=== PATIENT | female | born 1970 | race Caucasian/White ===

== ENCOUNTER 2017-01-07 09:11 | Outpatient (CLI) | payer OTHER | END 2017-01-07 09:12 | disposition home or self-care (01) | DX: M85.89 Other specified disorders of bone density and structure, multiple sites (principal) ==

== ENCOUNTER 2017-05-19 11:05 | Outpatient (CLI) | payer OTHER ==
[2017-05-19 19:14] LABS: ALBUMIN/GLOBULIN RATIO 1.7 (1.0-2.2); BILIRUBIN,TOTAL 0.4 mg/dL (0.2-1.0); BUN - BLOOD UREA NITROGEN 7 mg/dL (6-20); CALCIUM 9.5 mg/dL (8.5-10.3); CARBON DIOXIDE - CO2 27 mmol/L (21-32); CHLORIDE 104 mmol/L (101-111); CREATININE 0.6 mg/dL (0.4-1.0); GFR - MDRD 109 (>89); GLUCOSE 94 mg/dL (70-100); POTASSIUM 3.4 mmol/L (3.5-5.0); SODIUM 139 mmol/L (135-145); TOTAL PROTEIN 7.1 g/dL (6.7-8.2)
[2017-05-19 19:41] LABS: BASOPHILS # (AUTO) 0.1 10^3/uL (0.0-0.1); BASOPHILS % (AUTO) 0.6 %; EOSINOPHILS # (AUTO) 0.1 10^3/uL (0.0-0.7); EOSINOPHILS % (AUTO) 0.9 %; HCT - HEMATOCRIT 41.5 % (37.0-47.0); LYMPHOCYTES # (AUTO) 3.2 10^3/uL (1.5-3.5); LYMPHOCYTES % (AUTO) 28.8 %; MEAN CORPUSCULAR HEMOGLOBIN 33.4 pg (27.0-31.0); MEAN CORPUSCULAR HGB CONC 33.7 g/dL (32.0-36.0); MEAN CORPUSCULAR VOLUME 99.2 fL (81.0-99.0); MEAN PLATELET VOLUME 7.3 fL (7.9-10.8); MONOCYTES # (AUTO) 0.9 10^3/uL (0.0-1.0); MONOCYTES % (AUTO) 8.2 %; NEUTROPHILS # (AUTO) 6.9 10^3/uL (1.5-6.6); NEUTROPHILS % (AUTO) 61.5 %; RED BLOOD COUNT 4.18 10^6/uL (4.20-5.40); UNCORRECTED WHITE BLOOD COUNT 11.3 x10^3/uL; WHITE BLOOD COUNT 11.3 x10^3/uL (4.8-10.8)
== END 2017-05-19 11:06 ==
LOC: LAB.WCP 11:05
PROVIDERS: ATTEND Family Medicine
DX: M25.50 Pain in unspecified joint (principal); M54.2 Cervicalgia; L40.9 Psoriasis, unspecified
CPT/HCPCS: 36415; 80053; 85025; 85651; 86140

== ENCOUNTER 2021-03-03 12:17 | Emergency (ER) | payer OTHER ==
--- NOTE | 2021-03-03 12:49 | ED Physician Documentation ---
PD HPI CHEST PAIN - Stated complaint Stated Complaint: CHEST/LEG PX/HEART PALP - Chief complaint Chief Complaint: Cardiac - History obtained from History obtained from: Patient - History of Present Illness Timing - onset: How many days ago (symptoms of weakness, muscle cramps and palpitations for the past week.), Chronic (patient states potassium chronically low despite daily supplement. No diuretics, chronic diarrhea. Eval by PMD without Dx. Had K tested in office and was lower than usual at 2.6 despite increased oral supplements this past week. Referred to ER. Sx of cramps and palpitations, general weakness.) Timing - onset during: Light activity Timing - details: Gradual onset, Waxing and waning Quality: Tightness (intermittent in chest, with feeling of palpations.). No: Pressure Location: Substernal Radiation: No: Jaw, Neck Improved by: Rest Worsened by: Exertion. No: Inspiration Associated symptoms: General Weakness, Palpitations. No: Shortness of air, Nausea, Vomiting Similar symptoms before: No diagnosis Recently seen: Clinic (seen by PMD with check of K last week was 2.6, with baseline about 3-3.3 Had increase in oral supplements of KCl 20 mEq once daily to TID. Recheck in office today was still 2.6 so referred to ER.) Review of Systems Constitutional: denies: Fever, Chills Nose: denies: Rhinorrhea / runny nose, Congestion Throat: denies: Sore throat Cardiac: reports: Chest pain / pressure (the past week at times), Palpitations. denies: Pedal edema, Calf pain Respiratory: denies: Cough GI: denies: Nausea, Vomiting, Diarrhea : denies: Frequency Neurologic: reports: Generalized weakness. 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 - Present Medications Home Medications: Ambulatory Orders Medication Instructions Recorded Confirmed Hydrocodone/Acetaminophen [Vicodin 1 each PO 05/19/16 5-300 mg Tablet] Ibuprofen [Motrin] 800 mg PO Q8H PRN 07/26/16 07/26/16 Lidocaine [Lidoderm] 1 each TP 05/19/16 Potassium Chloride 10 meq PO DAILY 3 Days tablet.er 05/19/16 hydrOXYzine PAMOATE [Vistaril] 25 mg PO Q6H 05/19/16 05/19/16 Potassium Gluconate 99 mg PO BID #40 tablet 03/03/21 - Allergies Allergies/Adverse Reactions: Allergies Allergy/AdvReac Type Severity Reaction Status Date / Time No Known Drug Allergies Allergy Verified 03/03/21 12:22 - Social History Does the pt smoke?: Yes Smoking Status: Current every day smoker Does the pt drink ETOH?: No Does the pt have substance abuse?: No - Immunizations Immunizations are current?: Yes PD ED PE NORMAL - Vitals Vital signs reviewed: Yes - General General: Alert and oriented X 3, No acute distress, Other. No: Well developed/nourished (seems well developed but is very thin. ) - HEENT HEENT: Pharynx benign, Dentition benign (does not appear c/w chronic vomiting) - Neck Neck: Supple, no meningeal sign, No adenopathy - Cardiac Cardiac: RRR, No murmur - Respiratory Respiratory: Clear bilaterally - Abdomen Abdomen: Normal bowel sounds, Soft, Non tender - Back Back: No CVA TTP - Derm Derm: Normal color, Warm and dry - Extremities Extremities: No edema, No calf tenderness / cord - Neuro Neuro: Alert and oriented X 3, No motor deficit, Normal speech Results - Vitals Vitals: Vital Signs - 24 hr 03/03/21 03/03/21 03/03/21 12:22 14:30 15:23 Temperature 36.6 C Heart Rate 84 67 63 Respiratory 16 18 13 Rate Blood Pressure 114/75 99/55 L 108/66 O2 Saturation 98 95 100 03/03/21 03/03/21 15:41 15:54 Temperature 36.5 C Heart Rate 67 75 Respiratory 12 16 Rate Blood Pressure 107/65 107/78 O2 Saturation 100 99 Oxygen O2 Source Room air - EKG (time done) 12:26 Rate: Rate (enter#) (81) Rhythm: NSR [place]: Normal Intervals: Normal ND Ischemia: Normal ST segments. No: ST elevation c/w ischemia, ST depression, T wave inversion (but does have flattened t waves diffusely) - Labs Labs: Laboratory Tests 03/03/21 03/03/21 03/03/21 12:46 12:46 12:46 WBC 13.2 H RBC 4.24 Hgb 14.4 Hct 41.5 MCV 97.9 MCH 34.0 H MCHC 34.7 RDW 13.8 Plt Count 296 MPV 8.3 Neut # (Auto) 8.1 H Lymph # (Auto) 3.5 [place] # (Auto) 1.3 H Eos # (Auto) 0.2 Baso # (Auto) 0.0 Absolute Nucleated RBC 0.00 Nucleated RBC % 0.0 Sodium 137 Potassium 3.0 L Chloride 101 Carbon Dioxide 26 Anion Gap 10.0 BUN 7 Creatinine 0.5 Estimated GFR (MDRD) 132 Glucose 100 Calcium 9.2 Magnesium Total Bilirubin 0.4 AST 19 ALT 22 Alkaline Phosphatase 61 Troponin I High Sens < 2.3 L Total Protein 7.3 Albumin 4.3 Globulin 3.0 Albumin/Globulin Ratio 1.4 Lipase 28 TSH Urine Color Urine Clarity Urine pH Ur Specific [place] Urine Protein Urine Glucose (UA) Urine Ketones Urine Occult Blood Urine Nitrite Urine Bilirubin Urine Urobilinogen Ur Leukocyte Esterase Urine RBC Urine WBC Ur Squamous Epith Cells Urine Bacteria Ur Microscopic Review Urine Culture Comments Urine Potassium 03/03/21 03/03/21 03/03/21 12:46 12:46 15:19 WBC RBC Hgb Hct MCV MCH MCHC RDW Plt Count MPV Neut # (Auto) Lymph # (Auto) [place] # (Auto) Eos # (Auto) Baso # (Auto) Absolute Nucleated RBC Nucleated RBC % Sodium Potassium Chloride Carbon Dioxide Anion Gap BUN Creatinine Estimated GFR (MDRD) Glucose Calcium Magnesium 2.1 Total Bilirubin AST ALT Alkaline Phosphatase Troponin I High Sens Total Protein Albumin Globulin Albumin/Globulin Ratio Lipase TSH 1.04 Urine Color Urine Clarity Urine pH Ur Specific [place] Urine Protein Urine Glucose (UA) Urine Ketones Urine Occult Blood Urine Nitrite Urine Bilirubin Urine Urobilinogen Ur Leukocyte Esterase Urine RBC Urine WBC Ur Squamous Epith Cells Urine Bacteria Ur Microscopic Review Urine Culture Comments Urine Potassium 5.0 03/03/21 15:19 WBC RBC Hgb Hct MCV MCH MCHC RDW Plt Count MPV Neut # (Auto) Lymph # (Auto) [place] # (Auto) Eos # (Auto) Baso # (Auto) Absolute Nucleated RBC Nucleated RBC % Sodium Potassium Chloride Carbon Dioxide Anion Gap BUN Creatinine Estimated GFR (MDRD) Glucose Calcium Magnesium Total Bilirubin AST ALT Alkaline Phosphatase Troponin I High Sens Total Protein Albumin Globulin Albumin/Globulin Ratio Lipase TSH Urine Color YELLOW Urine Clarity CLEAR Urine pH 6.0 Ur Specific [place] <=1.005 Urine Protein NEGATIVE Urine Glucose (UA) NEGATIVE Urine Ketones NEGATIVE Urine Occult Blood SMALL H Urine Nitrite NEGATIVE Urine Bilirubin NEGATIVE Urine Urobilinogen 0.2 (NORMAL) Ur Leukocyte Esterase NEGATIVE Urine RBC 0-5 Urine WBC 0-3 Ur Squamous Epith Cells FEW Squamous Urine Bacteria Rare Ur Microscopic Review INDICATED Urine Culture Comments NOT INDICATED Urine Potassium PD MEDICAL DECISION MAKING - ED course Complexity details: reviewed results (referred to ER for K 2.6 in office, but is 3.0 here, so oral supplements helping some. Urine K is 5, so not likely potassium wasting in urine. UA otherwise normal, so not likely RTA. ), considered differential (patient with feeling of general weakness, muscle cramps often, and palpitations. History of low K for no good reason, ? malabsoprtion. Consider urinary excretion too, so can get urinary K and UA. ), d/w patient Departure - Departure Disposition: 01 Home, Self Care Clinical Impression: General weakness, Hypokalemia Condition: Stable Record reviewed to determine appropriate education?: Yes Instructions: ED Potassium Deficiency Follow-Up: [place] AUGUST DO [Primary Care Provider] - Prescriptions: Potassium Gluconate 99 mg PO BID #40 tablet Comments: Your potassium level was 3.0 here which was a little bit improved from outpatient. You were given to rider bags of potassium IV. Your urine potassium test is still pending. Have your primary care follow-up with these results. If the potassium supplements are not absorbing well, we can try a different form potassium supplement and see if that does better. I wrote for potassium gluconate to take twice daily for the next several days to a week and then once daily after that. Follow-up with your primary care later this week for recheck of blood tests. Discharge Date/Time: 03/03/21 15:54
--- NOTE | 2021-03-03 12:49 | XRAY Report ---
PROCEDURE: Chest 1 View X-Ray INDICATIONS: Chest pain TECHNIQUE: One view of the chest was acquired. COMPARISON: Chest x-ray 05/19/2016 FINDINGS: Surgical changes and devices: None. Lungs and pleura: No pleural effusions or pneumothorax. Lungs are clear. Lungs are hyperexpanded. Mediastinum: Mediastinal contours appear normal. Heart size is normal. Bones and chest wall: No suspicious bony lesions. Overlying soft tissues appear unremarkable. IMPRESSION: No acute pulmonary process. Reviewed by: Elli Ivory MD on 03/03/2021 12:48 PM PDT Approved by: Elli Ivory MD on 03/03/2021 12:48 PM PDT Station ID: [id number]
[2021-03-03 12:54] LABS: BASOPHILS % (AUTO) 0.3 %; EOSINOPHILS # (AUTO) 0.2 10^3/uL (0.0-0.7); EOSINOPHILS % (AUTO) 1.1 %; HCT - HEMATOCRIT 41.5 % (37.0-47.0); HGB - HEMOGLOBIN 14.4 g/dL (12.0-16.0); LYMPHOCYTES # (AUTO) 3.5 10^3/uL (1.5-3.5); LYMPHOCYTES % (AUTO) 26.7 %; MEAN CORPUSCULAR HGB CONC 34.7 g/dL (32.0-36.0); MEAN CORPUSCULAR VOLUME 97.9 fL (81.0-99.0); MEAN PLATELET VOLUME 8.3 fL (7.9-10.8); MONOCYTES # (AUTO) 1.3 10^3/uL (0.0-1.0); NEUTROPHILS # (AUTO) 8.1 10^3/uL (1.5-6.6); NEUTROPHILS % (AUTO) 61.6 %; PLT - PLATELET COUNT 296 10^3/uL (130-450); RED BLOOD COUNT 4.24 10^6/uL (4.20-5.40); RED CELL DISTRIBUTION WIDTH 13.8 % (12.0-15.0); WHITE BLOOD COUNT 13.2 x10^3/uL (4.8-10.8)
[2021-03-03 13:05] LABS: ALBUMIN 4.3 g/dL (3.2-5.5); ALBUMIN/GLOBULIN RATIO 1.4 (1.0-2.2); BILIRUBIN,TOTAL 0.4 mg/dL (0.2-1.0); CALCIUM 9.2 mg/dL (8.5-10.3); CREATININE 0.5 mg/dL (0.4-1.0); TOTAL PROTEIN 7.3 g/dL (6.7-8.2)
[2021-03-03] MEDS ORDERED: SODIUM CHLORIDE 0.9% 1,000 ML IV STA (13:12)
[2021-03-03] MEDS ORDERED: POTASSIUM CHLOR 10 MEQ/100 ML 10 MEQ/100 ML BAG IV STA ×2 (13:12→13:13)
[2021-03-03 15:37] LABS: BILIRUBIN,URINE NEGATIVE (NEGATIVE); GLUCOSE, URINE (UA) NEGATIVE (NEGATIVE); KETONES,URINE (UA) NEGATIVE (NEGATIVE); LEUKOCYTE ESTERASE, URINE NEGATIVE (NEGATIVE); NITRITE,URINE NEGATIVE (NEGATIVE); OCCULT BLOOD,URINE SMALL (NEGATIVE); PROTEIN,URINE NEGATIVE (NEGATIVE); UROBILINOGEN,URINE 0.2 (NORMAL) E.U./dL (NORMAL)
[2021-03-03 15:38] LABS: CLARITY,URINE CLEAR (CLEAR)
[2021-03-03 15:52] LABS: WBC,URINE 0-3 /HPF (0-5)
[2021-03-03 15:53] LABS: BACTERIA,URINE Rare /HPF (None Seen); RBC,URINE 0-5 /HPF (0-5); SQUAMOUS EPITHELIAL CELL,UR FEW Squamous (<= Few)
[2021-03-03 15:55] VITALS: BP 107/78
== END 2021-03-03 15:54 | disposition home or self-care (01) ==
LOC: ED 12:17
DX: E87.6 Hypokalemia (principal); F17.200 Nicotine dependence, unspecified, uncomplicated
CPT/HCPCS: 36415; 80053; 81001; 81003; 83690; 83735; 84133; 84443; 84484; 85025; 87086; 93005; 96365; 96366; 99284

== ENCOUNTER 2021-09-02 18:16 | Outpatient (CLI) | payer OTHER | END 2021-09-02 18:17 | disposition EMS.NT | LOC: EMS 18:16 | DX: M62.838 Other muscle spasm (principal) ==

== ENCOUNTER 2021-09-06 16:59 | Outpatient (CLI) | payer OTHER | END 2021-09-06 17:00 | disposition critical access hospital (66) | LOC: EMS 16:59 | DX: G24.9 Dystonia, unspecified (principal) | CPT/HCPCS: A0425; A0429 ==

== ENCOUNTER 2021-09-06 17:26 | Emergency (ER) | payer OTHER ==
[2021-09-06] MEDS ORDERED: SODIUM CHLORIDE 0.9% 1,000 ML IV STA (17:47)
--- NOTE | 2021-09-06 17:50 | ED Physician Documentation ---
PD HPI FOCAL NEURO - Stated complaint Stated Complaint: SEIZURE - Chief complaint Chief Complaint: Neuro - History obtained from History obtained from: Patient - History of Present Illness Timing - onset: Today Timing - duration: Minutes Timing - details: Abrupt onset (onset of feeling right sided arm and leg stiffness/shakiness which then involved both both sides. She was aware of this and awake. Lasted several minutes and also noted eye vision blurriness. These improved and then onset of headache, mainly right sided. No residual focal weakness.), Now resolved Severity of deficit: Moderate Numbness: Arm, Leg. No: Face Associated symptoms: Headache (onset after the shakiness.) Contributing factors: negative: Anticoagulated, Atrial fibrillation Baseline status: positive: A&OX3, ambulatory, indep Similar symptoms before: No diagnosis (At a similar episode couple weeks ago with feeling of tremoring and numbness on the right arm and leg which lasted for several minutes. She is aware of it. It then stopped and she developed a headache after.) Recently seen: Not recently seen Review of Systems Constitutional: denies: Fever, Chills Eyes: reports: Decreased vision (briefly). denies: Loss of vision Nose: denies: Rhinorrhea / runny nose Throat: denies: Sore throat Cardiac: denies: Chest pain / pressure Respiratory: denies: Cough GI: denies: Abdominal Pain, Vomiting, Diarrhea Neurologic: reports: Headache. denies: Generalized weakness, Syncope, Altered mental status, Head injury PD PAST MEDICAL HISTORY - Past Medical History Cardiovascular: None Respiratory: None Neuro: None, Migraines (has had migraines infrequent in the past. 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 - Present Medications Home Medications: Ambulatory Orders Medication Instructions Recorded Confirmed Hydrocodone/Acetaminophen [Vicodin 1 each PO 05/19/16 5-300 mg Tablet] Ibuprofen [Motrin] 800 mg PO Q8H PRN 05/19/16 05/19/16 Lidocaine [Lidoderm] 1 each TP 05/19/16 Potassium Chloride 10 meq PO DAILY 3 Days tablet.er 05/19/16 hydrOXYzine PAMOATE [Vistaril] 25 mg PO Q6H 05/19/16 05/19/16 Potassium Gluconate 99 mg PO BID #40 tablet 03/03/21 SUMAtriptan [Imitrex] 25 mg PO Q6H PRN #5 tablet 09/06/21 - Allergies Allergies/Adverse Reactions: Allergies Allergy/AdvReac Type Severity Reaction Status Date / Time No Known Drug Allergies Allergy Verified 09/06/21 17:32 - Social History Does the pt smoke?: Yes Smoking Status: Current every day smoker Does the pt drink ETOH?: No Does the pt have substance abuse?: No - Immunizations Immunizations are current?: Yes PD ED PE NORMAL - Vitals Vital signs reviewed: Yes - General General: Alert and oriented X 3, No acute distress, Well developed/nourished - HEENT HEENT: Atraumatic - Neck Neck: Supple, no meningeal sign, No adenopathy - Cardiac Cardiac: RRR, No murmur - Respiratory Respiratory: Clear bilaterally - Abdomen Abdomen: Soft, Non tender - Back Back: No CVA TTP - Derm Derm: Normal color, Warm and dry - Neuro Neuro: Alert and oriented X 3, No motor deficit, Normal speech NIHSS - Level of Consciousness Level of consciousness: (0) Alert, Keenly responsive LOC Questions: (0) Answers both Q's correct LOC Commands: (0) Performs both correctly - Gaze Best Gaze: (0) Normal - Visual Visual: (0) No loss - Facial Palsy Facial Palsy: (0) Normal, symmetrical movement - Motor Arms (both separate) Motor Arm (right): (0) No drift Motor Arm (left): (0) No drift - Motor Legs (both separate) Motor Leg (right): (0) No drift Motor Leg (left): (0) No drift - Limb Ataxia Limb Ataxia: (0) Absent - Sensory Sensory: (0) Normal - Best Language Best Language: (0) No aphasia - Dysarthria Dysarthria: (0) Normal - Extinction and Inattention (formally neg Extinction and inattention: (0) No abnormality - Total Score/Results Total Score/Result: 0 Results - Vitals Vitals: Vital Signs - 24 hr 09/06/21 09/06/21 09/06/21 17:32 18:39 19:27 Temperature 36.5 C Heart Rate 72 89 82 Respiratory 16 16 16 Rate Blood Pressure 116/69 125/80 111/64 O2 Saturation 99 99 98 Oxygen O2 Source Room air - Labs Labs: Laboratory Tests 09/06/21 09/06/21 09/06/21 17:57 17:57 17:57 WBC 10.1 RBC 3.60 L Hgb 12.3 Hct 35.0 L MCV 97.2 MCH 34.2 H MCHC 35.1 RDW 13.8 Plt Count 266 MPV 8.3 Neut # (Auto) 5.6 Lymph # (Auto) 3.2 [place] # (Auto) 1.0 Eos # (Auto) 0.2 Baso # (Auto) 0.1 Absolute Nucleated RBC 0.00 Nucleated RBC % 0.0 ESR 7 Sodium 137 Potassium 2.6 L Chloride 103 Carbon Dioxide 26 Anion Gap 8.0 BUN 12 Creatinine 0.5 Estimated GFR (MDRD) 132 Glucose 90 Calcium 9.2 Magnesium 2.0 Total Bilirubin 0.5 AST 20 ALT 25 Alkaline Phosphatase 50 Total Protein 6.0 L Albumin 3.9 Globulin 2.1 Albumin/Globulin Ratio 1.9 Lipase 35 TSH 09/06/21 17:57 WBC RBC Hgb Hct MCV MCH MCHC RDW Plt Count MPV Neut # (Auto) Lymph # (Auto) [place] # (Auto) Eos # (Auto) Baso # (Auto) Absolute Nucleated RBC Nucleated RBC % ESR Sodium Potassium Chloride Carbon Dioxide Anion Gap BUN Creatinine Estimated GFR (MDRD) Glucose Calcium Magnesium Total Bilirubin AST ALT Alkaline Phosphatase Total Protein Albumin Globulin Albumin/Globulin Ratio Lipase TSH 1.41 - Rads (name of study) head CT Radiology: Prelim report reviewed (no acute findings. ), See rad report PD MEDICAL DECISION MAKING - ED course Complexity details: reviewed results, re-evaluated patient (feeling okay here. Minimal headache. ), considered differential (seems likely complex migraine, but can get head CT to ensure no mass effect, bleed, etc. ), d/w patient Departure - Departure Disposition: 01 Home, Self Care Clinical Impression: Limb tremor, Headache Migraine Qualifiers: Migraine type: with aura Status migrainosus presence: without status migrainosus Intractability: not intractable Qualified Code(s): G43.109 - Migraine with aura, not intractable, without status migrainosus Condition: Stable Record reviewed to determine appropriate education?: Yes Instructions: ED Cephalgia Unspecified Follow-Up: MATA,[place]O A, DO [Primary Care Provider] - Prescriptions: SUMAtriptan [Imitrex] 25 mg PO Q6H PRN #5 tablet PRN Reason: Headache Comments: Your head CT is normal without any signs of swelling, tumors, bleeding, injury. Your blood tests are normal to with the exception of a low potassium which would be expected for you. Other electrolytes and blood sugar are good. The episodes of your symptoms I believe may be a complex migraine episodes. I would follow-up with your primary care for further evaluation of these. Meanwhile stay well-hydrated and continue your potassium supplements. If you nayak ve another episode of significant headache either preceded by the tremoring symptoms or not, you could try sumatriptan migraine medicine and see if it improves the symptoms over 15 to 30 minutes. You can combine it with anti- inflammatory such as ibuprofen or naproxen. Return if needed. Otherwise follow-up with your primary care, call for an appointment. Discharge Date/Time: 09/06/21 19:30
[2021-09-06 18:02] LABS: BASOPHILS # (AUTO) 0.1 10^3/uL (0.0-0.1); BASOPHILS % (AUTO) 0.5 %; EOSINOPHILS # (AUTO) 0.2 10^3/uL (0.0-0.7); EOSINOPHILS % (AUTO) 2.2 %; HGB - HEMOGLOBIN 12.3 g/dL (12.0-16.0); LYMPHOCYTES # (AUTO) 3.2 10^3/uL (1.5-3.5); LYMPHOCYTES % (AUTO) 31.7 %; MEAN CORPUSCULAR HEMOGLOBIN 34.2 pg (27.0-31.0); MEAN CORPUSCULAR HGB CONC 35.1 g/dL (32.0-36.0); MEAN CORPUSCULAR VOLUME 97.2 fL (81.0-99.0); MEAN PLATELET VOLUME 8.3 fL (7.9-10.8); MONOCYTES % (AUTO) 9.6 %; NEUTROPHILS # (AUTO) 5.6 10^3/uL (1.5-6.6); NEUTROPHILS % (AUTO) 55.7 %; PLT - PLATELET COUNT 266 10^3/uL (130-450); RED CELL DISTRIBUTION WIDTH 13.8 % (12.0-15.0); WHITE BLOOD COUNT 10.1 x10^3/uL (4.8-10.8)
[2021-09-06 18:18] LABS: ALBUMIN 3.9 g/dL (3.2-5.5); ALBUMIN/GLOBULIN RATIO 1.9 (1.0-2.2); BILIRUBIN,TOTAL 0.5 mg/dL (0.2-1.0); CALCIUM 9.2 mg/dL (8.5-10.3); CREATININE 0.5 mg/dL (0.4-1.0); POTASSIUM 2.6 mmol/L (3.5-5.0)
--- NOTE | 2021-09-06 18:42 | CT Report ---
PROCEDURE: CT brain without contrast INDICATIONS: right sided shakiness/weakness, then headache TECHNIQUE: Noncontrast 4.5 mm thick angled axial sections acquired from the foramen magnum to the vertex. For r adiation dose reduction, the following was used: automated exposure control, adjustment of mA and/or kV according to patient size. COMPARISON: None. FINDINGS: Image quality: Excellent. CSF spaces: Basal cisterns are patent. No extra-axial fluid collections. Ventricles are normal in size and shape. Brain: No midline shift. No intracranial masses or hemorrhage. Avila-white matter interface is norm al. Skull and face: Calvarium and visualized facial bones are intact, without suspicious lesions. Sinuses: Visualized sinuses and mastoids are clear. IMPRESSION: Normal CT brain. No intracranial hemorrhage or mass effect. Reviewed by: Igor Cadena MD on 09/06/2021 5:41 PM [place] Approved by: Igor Cadena MD on 09/06/2021 5:41 PM [place] Station ID: [id number]
[2021-09-06] MEDS: POTASSIUM CHLORIDE 20 MEQ TABLET PO STA ×2 (19:01→19:09)
[2021-09-06 19:28] VITALS: BP 111/64
== END 2021-09-06 19:30 | disposition home or self-care (01) ==
LOC: EDUNIT# → ED 17:26
DX: G43.109 Migraine with aura, not intractable, without status migrainosus (principal); R25.1 Tremor, unspecified; E87.6 Hypokalemia; F17.200 Nicotine dependence, unspecified, uncomplicated
CPT/HCPCS: 36415; 70450; 80053; 83690; 83735; 84443; 85025; 85651; 93005; 99284; A9270

== ENCOUNTER 2021-12-11 09:25 | Outpatient (CLI) | payer OTHER ==
--- NOTE | 2021-12-11 10:10 | CT Report ---
PROCEDURE: CERVICAL SPINE WO INDICATIONS: And neck pain TECHNIQUE: Noncontrast 3 mm thick sections acquired from the skull base to the T4 level. Sagittal and coronal r eformats were then constructed. For radiation dose reduction, the following was used: automated exp osure control, adjustment of mA and/or kV according to patient size. COMPARISON: None. FINDINGS: There are postsurgical changes of anterior interbody fusion at C5-C6 along with placement of interfac et spacers at C5-C6. Anterolisthesis of C5 on C6 measures 4 mm and is likely increased from MRI perfo rmed 05/19/2016. There is no fusion across the C5-C6 intervertebral disc space or posterior elements. Although not entirely definitive, the hardware appears slightly more anteriorly positioned than expec ricky. There is anterior wedging of the C6 vertebral body with some bone loss surrounding the hardware raising concern for subsidence, although again this is not definitive and comparison with additional preoperative and postoperative studies would be helpful. Otherwise normal alignment. Vertebral body heights otherwise maintained. No suspicious lytic or blast ic osseous lesion. Regional prevertebral and paraspinous soft tissues are within normal limits. Apica l emphysematous changes. At C2-C3, no spinal canal or neural foraminal stenosis. At C3-C4, no spinal canal or neural foraminal stenosis. Mild uncovertebral hypertrophy. At C4-C5, no spinal canal or neural foraminal stenosis. Mild facet and uncovertebral hypertrophy, lef t greater than right. At C5-C6, severe neural foraminal stenosis on the left and moderate neural foraminal stenosis on the right, due to accommodation of facet and uncovertebral hypertrophy. Pseudobulge due to anterolisthesi s of C5 on C6 combines with posterior osteophytic ridging of the C6 endplate is some diffuse disc bul ge to produce at least mild spinal canal stenosis. At C6-C7, no spinal canal or neural foraminal stenosis. No significant degenerative changes of the fa cets or uncovertebral joints. At C7-T1, no spinal canal or neural foraminal stenosis. IMPRESSION: Postsurgical changes of C5-C6 anterior body fusion and interfacet space replacement at C5-C6. No fusion across the intervertebral disc space or posterior elements at C5-C6. Anterolisthesis of C5 on C6 measuring 4 mm, increased from comparison MRI obtained April 2016, with qu estion of possible anterior migration of interbody fusion hardware. Correlate for any other clinical evidence of hardware loosening/subsidence. Multilevel multifactorial degenerative changes, worst at C5-C6. Reviewed by: Rajesh Samuel MD on 12/11/2021 10:09 AM PST Approved by: Rajesh Samuel MD on 12/11/2021 10:09 AM PST Station ID: [id number]
--- NOTE | 2021-12-11 11:08 | XRAY Report ---
PROCEDURE: Cervical Spine 2 View INDICATIONS: NECK PAIN TECHNIQUE: 3 view(s) of the cervical spine were acquired. COMPARISON: Reference is made to the MRI C-spine dated May 19, 2016. FINDINGS: C-SPINE: No acute, displaced fracture. Discectomy change at C5-6. The vertebral body heights and rod ining intervertebral disc spaces are maintained. No abnormal subluxation is seen with flexion or exte nsion. SOFT TISSUES: No prevertebral soft tissue thickening. IMPRESSION: 1.No significant abnormality. Reviewed by: Tyson Jimenez MD on 12/11/2021 11:07 AM [facility] Approved by: Tyson Jimenez MD on 12/11/2021 11:07 AM [facility] Station ID: [id number]
== END 2021-12-11 09:26 | disposition home or self-care (01) ==
LOC: DI 09:25
PROVIDERS: ATTEND Neurological Surgery
DX: M47.812 Spondylosis without myelopathy or radiculopathy, cervical region (principal); M43.12 Spondylolisthesis, cervical region; Z98.1 Arthrodesis status; M48.02 Spinal stenosis, cervical region